=== PATIENT | male | born 1975 | race Caucasian/White ===

== ENCOUNTER → 2020-09-06 | Outpatient (CLI) | payer MEDICARE, OTHER | LOC: OPSV 08-23 12:00 | DX: B60.09 Other babesiosis (principal); T14.8XXD Other injury of unspecified body region, subsequent encounter; F41.9 Anxiety disorder, unspecified; M51.9 Unspecified thoracic, thoracolumbar and lumbosacral intervertebral disc disorder; M45.9 Ankylosing spondylitis of unspecified sites in spine | CPT/HCPCS: G0463 ==